=== PATIENT | female | born 1990 | race Caucasian/White ===

== ENCOUNTER 2018-02-01 20:13 | Emergency (ER) | payer OTHER ==
[2018-02-01 21:55] LABS: URINE BLOOD (Dip) POC Trace-intact (NEGATIVE); URINE GLUCOSE (Dip) POC Negative (NEGATIVE); URINE KETONES (Dip) POC Trace (NEGATIVE); URINE LEUKOCYTE EST (Dip) POC 2+ (NEGATIVE); URINE NITRITE (Dip) POC Positive (NEGATIVE); URINE TOTAL PROTEIN POC 2+ (NEGATIVE)
[2018-02-01] MEDS: ONDANSETRON (ODT) 4 MG TAB ODT (22:00)
[2018-02-01] MEDS: ACETAMINOPHEN 325 MG TAB PO (22:00)
[2018-02-01] MEDS: LIDOCAINE 1% (MDV) 10 ML INJ INFIL (22:24)
[2018-02-01] MEDS: CEFTRIAXONE 1 GM INJ IM (22:24)
== END 2018-02-01 22:31 | disposition home or self-care (01) ==
LOC: FTE 20:13
DX: N12 Tubulo-interstitial nephritis, not specified as acute or chronic (principal)
CPT/HCPCS: 81003; 81025; 96372; 99284-25

== ENCOUNTER 2018-07-24 03:27 | Emergency (ER) | payer OTHER ==
[2018-07-24] MEDS: IBUPROFEN 800 MG TAB PO (04:46)
== END 2018-07-24 05:20 | disposition home or self-care (01) ==
LOC: E/R 03:27
DX: S80.811A Abrasion, right lower leg, initial encounter (principal); S80.812A Abrasion, left lower leg, initial encounter; S13.4XXA Sprain of ligaments of cervical spine, initial encounter; V49.50XA Passenger injured in collision with unspecified motor vehicles in traffic accident, initial encounter
CPT/HCPCS: 99282; Z7610